=== PATIENT | female | born 1970 | race Caucasian/White ===

== ENCOUNTER 2018-11-03 11:42 | Emergency (ER) | payer OTHER ==
[~2018-11-03] VITALS: Ht 165.1 cm; Wt 60.8 kg
--- NOTE | 2018-11-03 11:42 | NUR ---
PT BIBSELF FROM HOME, C/O N/V/FAINTNESS SINCE THIS AM, PT AAOX4, RESPIRATIONS EVEN AND UNLABORED, NO SOB, DENIES AND PAIN/DISCOMFORT, PT ON MONITOR, PENDING ER PROVIDER RHYS
[2018-11-03] MEDS ORDERED: ONDANSETRON HCL/PF 4 MG/2 ML VIAL ONE (12:13)
--- NOTE | 2018-11-03 12:15 | NUR ---
BLOOD COLLECTED FROM PIV, HANDED OVER TO HAM BONER, NO URINE ORDER AT THIS TIME
[2018-11-03 12:25] LABS: BASOPHILS % (AUTO) 0.2 % (0.0-2.0); EOSINOPHILS % (AUTO) 2.8 % (0.0-6.0); HEMATOCRIT 43 % (33-45); HEMOGLOBIN 14.7 g/dL (11.5-14.8); LYMPHOCYTES # (AUTO) 1.4 /CMM (0.8-4.8); LYMPHOCYTES % (AUTO) 18.4 % (20.0-44.0); MEAN CORPUSCULAR HGB CONC 34 g/dl (31.0-36.0); MEAN CORPUSCULAR VOLUME 93 fL (82-100); MONOCYTES # (AUTO) 0.4 /CMM (0.1-1.30); NEUTROPHILS # (AUTO) 5.5 /CMM (1.8-8.9); NEUTROPHILS % (AUTO) 73.6 % (43.0-81.0); PLATELET COUNT (AUTO) 222 /CMM (150-450); RED BLOOD CELL COUNT(AUTO) 4.68 MIL/uL (4.0-5.2); WHITE BLOOD COUNT (AUTO) 7.5 K/uL (4.3-11.0)
[2018-11-03] MEDS ORDERED: IV NS 0.9% 1,000 ML BAG IV ONE (12:30)
[2018-11-03] MEDS ORDERED: ONDANSETRON HCL/PF 4 MG/2 ML VIAL IVP ONE (12:30)
[2018-11-03 12:41] LABS: CALCIUM, SERUM 8.6 mg/dL (8.5-10.1); CARBON DIOXIDE 27 mmol/L (21-32); CHLORIDE 102 mmol/L (98-107); CREATININE 0.8 mg/dL (0.6-1.3); GLUCOSE 78 mg/dL (74-106); SODIUM SERUM 135 mmol/L (136-145); UREA NITROGEN, BLOOD 18 mg/dL (7-18)
[2018-11-03 12:50] LABS: ALANINE AMINOTRANSFERASE 17 U/L (12-78); ALBUMIN 3.7 g/dL (3.4-5.0); ALKALINE PHOSPHATASE 49 U/L (46-116); ASPARTATE AMINOTRANSFERASE 16 U/L (15-37); BILIRUBIN,DIRECT 0.1 mg/dL (0.0-0.2); BILIRUBIN,TOTAL 0.7 mg/dL (0.2-1.0); TOTAL PROTEIN, SERUM 7.5 g/dL (6.4-8.2)
[2018-11-03 13:51] VITALS: BP 90/60
--- NOTE | 2018-11-03 14:24 | NUR ---
Patient discharged to home in stable condition. Written and verbal after care instructions given. Patient verbalizes understanding of instruction. IV removed. Catheter intact and site benign. Pressure and 4x4 applied to site. No bleeding noted.
== END 2018-11-03 14:27 | disposition home or self-care (01) ==
LOC: ER 11:46
DX: E86.0 Dehydration (principal); E03.9 Hypothyroidism, unspecified; F41.9 Anxiety disorder, unspecified
CPT/HCPCS: 36415; 70450; 71045; 80048; 80076; 84443; 84484; 85025; 85730; 93005; 96361; 96374; 99284; A4606; J2405; J7030 ×2; Z7610

== ENCOUNTER 2019-01-27 20:13 | Inpatient (IN) | payer OTHER ==
[~2019-01-27] VITALS: Ht 170.2 cm; Wt 59.0 kg
--- NOTE | 2019-01-27 20:50 | NUR ---
PT BBRELATIVE FROM HOME C/C N/V/D X4 DAYS, UNABLE TO KEEP FLUIDS DOWN. AFEBRILE. PT C/O OF DIZZINESS, WEAKNESS WHEN STANDING OR SITTING. DENIES CARDIAC HX. PT ON MONITOR IN BED 9 WITH FAMILY AT BEDSIDE. WILL CONTINUE TO MONITOR.
--- NOTE | 2019-01-27 21:10 | NUR ---
IV PLACED AND BLOOD DRAWN AND GIVEN TO LAB
[2019-01-27] MEDS ORDERED: DEXAMETHASONE SOD PHOSPHATE 10 MG/ML VIAL ONE (21:16)
[2019-01-27] MEDS ORDERED: ONDANSETRON HCL/PF 4 MG/2 ML VIAL ONE (21:16)
[2019-01-27] MEDS ORDERED: ONDANSETRON HCL/PF 4 MG/2 ML VIAL IVP ONE (21:30)
[2019-01-27] MEDS ORDERED: IV NS 0.9% 1,000 ML BAG IV ONE ×3 (21:30→22:30)
[2019-01-27] MEDS ORDERED: DEXAMETHASONE SOD PHOSPHATE 10 MG/ML VIAL IV ONE (21:30)
--- NOTE | 2019-01-27 21:31 | NUR ---
RADIOLOGY AT [facility] FOR XRAY
[2019-01-27 21:37] LABS: BASOPHILS % (AUTO) 0.1 % (0.0-2.0); EOSINOPHILS % (AUTO) 2.2 % (0.0-6.0); HEMATOCRIT 51 % (33-45); HEMOGLOBIN 16.7 g/dL (11.5-14.8); LYMPHOCYTES # (AUTO) 1.6 /CMM (0.8-4.8); LYMPHOCYTES % (AUTO) 17.5 % (20.0-44.0); MEAN CORPUSCULAR HGB CONC 33 g/dl (31.0-36.0); MEAN CORPUSCULAR VOLUME 95 fL (82-100); MONOCYTES # (AUTO) 0.7 /CMM (0.1-1.30); MONOCYTES % (AUTO) 7.5 % (2.0-12.0); NEUTROPHILS # (AUTO) 6.7 /CMM (1.8-8.9); NEUTROPHILS % (AUTO) 72.7 % (43.0-81.0); PLATELET COUNT (AUTO) 282 /CMM (150-450); RED BLOOD CELL COUNT(AUTO) 5.39 MIL/uL (4.0-5.2); WHITE BLOOD COUNT (AUTO) 9.2 K/uL (4.3-11.0)
[2019-01-27 21:51] LABS: CALCIUM, SERUM 9.4 mg/dL (8.5-10.1); CREATININE 0.5 mg/dL (0.6-1.3)
[2019-01-27 21:57] LABS: ALBUMIN 3.3 g/dL (3.4-5.0); BILIRUBIN,DIRECT 0.1 mg/dL (0.0-0.2); BILIRUBIN,TOTAL 0.8 mg/dL (0.2-1.0); TOTAL PROTEIN, SERUM 7.8 g/dL (6.4-8.2)
[2019-01-27 22:06] LABS: T4 (THYROXINE) 12.1 ug/dL (4.7-13.3); THYROID STIMULATING HORMONE 1.841 uIU/mL (0.358-3.74)
[2019-01-27] MEDS ORDERED: PIPERACILLIN /TAZOBACTAM 3.375 G in IV D5W 50 ML IV ONE (22:30)
[2019-01-27] MEDS ORDERED: PIPERACILLIN /TAZOBACTAM 3.375 G VIAL IV ONE (22:39)
[2019-01-27] MEDS ORDERED: POTASSIUM CL. PREMIX PERIPHER. 50 ML ONE (23:27)
--- NOTE | 2019-01-27 23:27 | NUR ---
BED 115-1
[2019-01-27] MEDS: POTASSIUM CL. PREMIX PERIPHER. 50 ML IV SCH (23:35)
--- NOTE | 2019-01-28 00:21 | NUR ---
URINE COLLECTED AND SENT TO LAB
[2019-01-28 00:27] LABS: APPEARANCE,URINE Clear (CLEAR); BILIRUBIN,URINE MODERATE (NEGATIVE); BLOOD, URINE Trace-intact Ery/uL (NEGATIVE); COLOR,URINE Yellow (YELLOW); KETONES,URINE >=160 (NEGATIVE); LEUKOCYTE ESTERASE ,URINE Negative (NEGATIVE); NITRITE, URINE Negative (NEGATIVE); PH,URINE 5.5 (5.0-8.0); PROTEIN,URINE 100 mg/dl (NEGATIVE); UGLUCOSE Negative (NEGATIVE); UROBILINOGEN,URINE 0.2 EU/dL (0.2)
--- NOTE | 2019-01-28 00:30 | NUR ---
REPORT GIVEN TO PRECIOUS JACQUES FOR CARLA
[2019-01-28 00:55] VITALS: BP 107/66
--- NOTE | 2019-01-28 00:55 | NUR ---
RN NOTES RECEIVED PT. FROM ER WITH DX. OF DIFFUSE COLITIS, ST ON TELE MONITOR HR-125, A/OX4, AMBULATORY, DENIES PAIN, NO N/V, ADMISSION INSTRUCTION WAS GIVEN, CALL LIGHT WITHIN REACH, [id number], CONTINUE TO MONITOR
[2019-01-28] MEDS: POTASSIUM CL. PREMIX PERIPHER. 50 ML IV SCH ×3 (01:17→03:38)
[2019-01-28] MEDS ORDERED: ACETAMINOPHEN 325 MG TABLET PO PRN (01:30)
[2019-01-28] MEDS ORDERED: MORPHINE SULFATE INJ 2 MG/ML DISP.SYRIN IV PRN (01:30)
[2019-01-28] MEDS ORDERED: Potassium Chloride 20 MEQ in IV NS 0.9% 1,000 ML IV PRN (01:30)
[2019-01-28] MEDS ORDERED: ONDANSETRON HCL/PF 4 MG/2 ML VIAL IVP PRN (01:30)
[2019-01-28] MEDS ORDERED: IV PREMIX NS +20MEQ KCL 1 L IV ONE (02:31)
[2019-01-28] MEDS ORDERED: POTASSIUM CL. PREMIX PERIPHER. 50 ML ONE (03:37)
[2019-01-28] MEDS ORDERED: PIPERACILLIN /TAZOBACTAM 3.375 G VIAL IV ONE (03:40)
[2019-01-28 04:00] VITALS: BP 119/71
[2019-01-28] MEDS ORDERED: PIPERACILLIN /TAZOBACTAM 3.375 G in IV D5W 50 ML IV SCH (05:00)
--- NOTE | 2019-01-28 07:15 | NUR ---
RN OPENING NOTE RECEIVED PATIENT IN BED AWAKE AND ALERT. AMBULATED TO GO TO THE BATHROOM. CAME IN LAST NIGHT DUE TO DIFFUSE COLITIS. PATIENT ON TELE MONITOR, SINUS TACHY 114. NOC SHIFT RN SAID MD IS AWARE. PATIENT ON CLEAR LIQUID DIET. HAS LEFT AC #20 WITH NS + 20 MEQ OF KCL RUNNING AT 100ML/HR. SKIN IS INTACT. BED ON LOWEST POSITION. CALL LIGHT WITHIN REACH. WILL CONTINUE TO MONITOR THROUGHOUT THE SHIFT
[2019-01-28 07:24] LABS: BASOPHILS % (AUTO) 0.1 % (0.0-2.0); HEMATOCRIT 45 % (33-45); HEMOGLOBIN 14.7 g/dL (11.5-14.8); LYMPHOCYTES # (AUTO) 0.3 /CMM (0.8-4.8); LYMPHOCYTES % (AUTO) 6.4 % (20.0-44.0); MEAN CORPUSCULAR HGB CONC 33 g/dl (31.0-36.0); MEAN CORPUSCULAR VOLUME 94 fL (82-100); MONOCYTES # (AUTO) 0.1 /CMM (0.1-1.30); NEUTROPHILS # (AUTO) 4.8 /CMM (1.8-8.9); NEUTROPHILS % (AUTO) 92.5 % (43.0-81.0); PLATELET COUNT (AUTO) 177 /CMM (150-450); RED BLOOD CELL COUNT(AUTO) 4.76 MIL/uL (4.0-5.2); WHITE BLOOD COUNT (AUTO) 5.2 K/uL (4.3-11.0)
[2019-01-28 07:53] LABS: ALBUMIN 3.3 g/dL (3.4-5.0); BILIRUBIN,TOTAL 0.5 mg/dL (0.2-1.0); CALCIUM, SERUM 8.4 mg/dL (8.5-10.1); CREATININE 1.1 mg/dL (0.6-1.3); MAGNESIUM 1.5 mg/dL (1.8-2.4); PHOSPHORUS 2.8 mg/dL (2.5-4.9); TOTAL PROTEIN, SERUM 7.4 g/dL (6.4-8.2)
[2019-01-28 08:00] VITALS: BP 107/62
[2019-01-28] MEDS: PANTOPRAZOLE 40 MG TABLET.DR PO SCH (08:01)
[2019-01-28 08:13] LABS: POTASSIUM 6.3 mmol/L (3.5-5.1)
[2019-01-28] MEDS ORDERED: LEVO125T8 PO (08:39)
[2019-01-28 09:11] LABS: BACTERIA,URINE Few /HPF (None Seen); SQUAMOUS EPITHELIAL CELL,UR Few /HPF (None Seen); WBC,URINE NONE SEEN /HPF (0-3)
[2019-01-28 09:12] LABS: FINE GRANULAR CASTS,URINE Few /LPF (None Seen)
[2019-01-28] MEDS: PIPERACILLIN /TAZOBACTAM 3.375 G in IV D5W 100 ML IV SCH ×2 (10:54→18:59)
[2019-01-28 12:00] VITALS: BP 102/64
[2019-01-28] MEDS: Magnesium 1GM/D5W 100ML PREMIX 100 ML IV SCH ×2 (12:02→16:46)
[2019-01-28] MEDS ORDERED: IV NS 0.9% 1,000 ML BAG IV PRN (12:30)
[2019-01-28] MEDS ORDERED: IV NS 0.9% 1,000 ML IV PRN (12:30)
[2019-01-28 13:37] LABS: ALBUMIN 3.2 g/dL (3.4-5.0); BILIRUBIN,TOTAL 0.6 mg/dL (0.2-1.0); CALCIUM, SERUM 8.3 mg/dL (8.5-10.1); CREATININE 1.1 mg/dL (0.6-1.3); POTASSIUM 5.3 mmol/L (3.5-5.1); TOTAL PROTEIN, SERUM 7.2 g/dL (6.4-8.2)
[2019-01-28 16:00] VITALS: BP 106/66
--- NOTE | 2019-01-28 18:33 | NUR ---
RN NOTE PATIENT REPORTED THAT SHE HAD A LARGE BM, DIARRHEA. GREEN/GOLD COLOR, NO BLOOD WAS NOTED. Addendum: 01/28/19 at 1835 by GRAHAM PARR RN TOTAL BM TODAY WAS 4. ALL DIARRHEA, DR JONES AWARE
--- NOTE | 2019-01-28 18:50 | NUR ---
RN CLOSING NOTE PATIENT AWAKE AND ALERT. NO COMPLAINS OF ANY PAIN OR ANY DISTRESS DURING THE DAY SHIFT. HAD 4X DIARRHEA TODAY. AWARE. REPLACED MAGNESIUM AND CHANGED IVF TO NS AT 100 ML/HR DUE TO HYPERKALEMIA. ALL MEDS ARE GIVEN, ALL NEEDS MET. BED ON LOWEST POSITION. CALL LIGHT WITHIN REACH. WILL CONT TO MONITOR CLOSELY. Addendum: 01/28/19 at 1852 by GRAHAM PARR RN WILL ENDORSE TO NOC ALEXANDR RN
--- NOTE | 2019-01-28 19:20 | NUR ---
TOWER ERECTOR HELPER NOTE RECEIVED PT IN STABLE CONDITION, A&O X4, ABLE TO MAKE NEEDS KNOWN. CURRENTLY WATCHING TV WITH GUEST. TELE MONITOR READING ST 115. IV IN L AC PATENT AND INTACT WITH IVF INFUSING. NO SIGNS OF SOB OR DISTRESS, NO C/O PAIN. ALL CURRENT NEEDS ATTENDED TO. SAFETY PRECAUTIONS IN PLACE: BED LOW, LOCKED, UPPER RAILS UP, AND CALL LIGHT WITHIN RANGE. WILL CONT. TO MONITOR.
[2019-01-28 20:00] VITALS: BP 108/65
[2019-01-29] VITALS (7 sets, daily range): BP systolic 97–126; BP diastolic 56–68
[2019-01-29] MEDS: PIPERACILLIN /TAZOBACTAM 3.375 G in IV D5W 100 ML IV SCH ×3 (02:00→19:42)
--- NOTE | 2019-01-29 06:17 | NUR ---
PAINT BRUSH MAKER NOTE PT IN STABLE CONDITION, A&O X4, ABLE TO MAKE NEEDS KNOWN. TELE MONITOR READING SR 90. IV IN L AC PATENT AND INTACT WITH IVF INFUSING. NO SIGNS OF SOB OR DISTRESS, NO C/O PAIN. ALL CURRENT NEEDS ATTENDED TO. SAFETY PRECAUTIONS IN PLACE: BED LOW, LOCKED, UPPER RAILS UP, AND CALL LIGHT WITHIN RANGE. WILL CONT. TO MONITOR AND ENDORSE TO NEXT SHIFT FOR CARLA.
[2019-01-29 07:16] LABS: CALCIUM, SERUM 8.5 mg/dL (8.5-10.1); CREATININE 0.8 mg/dL (0.6-1.3); MAGNESIUM 1.8 mg/dL (1.8-2.4); POTASSIUM 4.7 mmol/L (3.5-5.1)
--- NOTE | 2019-01-29 07:20 | NUR ---
RN OPENING NOTES RECEIVED REPORT FROM POND WORKER RN. PT IS ON TELE MONITOR READING SR 90'S. PT IS A&OX 4. PT IS ABLE TO MAKE NEEDS KNOWN. PT DENIES ANY PAIN AT PRESENT MOMENT AND SOB. CALL LIGHT IS WITHIN REACH AND BED IS IN LOWEST AND LOCKED POSITION PT ENCOURAGED TO CALL STAFF IF SHE WISHES TO AMBULATE. WILL CONTINUE TO MONITOR.
[2019-01-29] MEDS: PANTOPRAZOLE 40 MG TABLET.DR PO SCH (07:52)
[2019-01-29 08:13] LABS: T3 TOTAL 88 ng/dL (71-180)
[2019-01-29] MEDS: METRONIDAZOLE 500MG/ NS 100ML 500 MG in PREMIX 1 EA IV SCH ×2 (18:00→21:00)
[2019-01-29] MEDS: Potassium Chloride 10 MEQ in IV D5/0.45 NACL 1,000 ML IV PRN (18:01)
--- NOTE | 2019-01-29 19:44 | NUR ---
RN INITIAL NOTES RECEIVED REPORT FROM AM SHIFT RN. PT IS ON TELE MONITOR READING SR 80'S. PT IS A&OX 4. PT IS ABLE TO MAKE NEEDS KNOWN. PT DENIES ANY PAIN AT PRESENT MOMENT AND SOB. CALL LIGHT IS WITHIN REACH AND BED IS IN LOWEST AND LOCKED POSITION PT ENCOURAGED TO CALL STAFF IF SHE WISHES TO AMBULATE. WILL CONTINUE TO MONITOR.
--- NOTE | 2019-01-29 19:56 | NUR ---
RN CLOSING NOTES GAVE REPORT TO ENGINEERING PATTERNMAKER RN. PT IS ON TELE MONITOR READING SR 80'S. PT IS A&OX 4. PT IS ABLE TO MAKE NEEDS KNOWN. PT DENIES ANY PAIN AT PRESENT MOMENT AND SOB. CALL LIGHT IS WITHIN REACH AND BED IS IN LOWEST AND LOCKED POSITION PT ENCOURAGED TO CALL STAFF IF SHE WISHES TO AMBULATE. WILL ENDORSE CONTINUITY OF CARE TO ENGINEERING PATTERNMAKER RN.
[2019-01-30] VITALS (7 sets, daily range): BP systolic 98–110; BP diastolic 55–65
[2019-01-30] MEDS: PIPERACILLIN /TAZOBACTAM 3.375 G in IV D5W 100 ML IV SCH ×3 (03:17→18:28)
[2019-01-30] MEDS: METRONIDAZOLE 500MG/ NS 100ML 500 MG in PREMIX 1 EA IV SCH ×3 (05:17→20:20)
--- NOTE | 2019-01-30 05:59 | NUR ---
RN CLOSING NOTES PT AOX4 CONT' ON TELE MONITOR READING SR 80'S. PT IS A&OX 4. PT IS ABLE TO MAKE NEEDS KNOWN. PT DENIES ANY PAIN AT PRESENT MOMENT AND SOB, DIET ADVANCED TO FULL LIQ', REINIER' WELL. CALL LIGHT IS WITHIN REACH AND BED IS IN LOWEST AND LOCKED POSITION PT ENCOURAGED TO CALL STAFF IF SHE WISHES TO AMBULATE. WILL ENDORSE CONTINUITY OF CARE TO CLEAT THROWER RN.
[2019-01-30 06:36] LABS: BASOPHILS % (AUTO) 0.1 % (0.0-2.0); EOSINOPHILS % (AUTO) 0.3 % (0.0-6.0); HEMATOCRIT 31 % (33-45); HEMOGLOBIN 10.6 g/dL (11.5-14.8); LYMPHOCYTES % (AUTO) 22.3 % (20.0-44.0); MEAN CORPUSCULAR HGB CONC 35 g/dl (31.0-36.0); MEAN CORPUSCULAR VOLUME 90 fL (82-100); MONOCYTES # (AUTO) 0.4 /CMM (0.1-1.30); MONOCYTES % (AUTO) 8.2 % (2.0-12.0); NEUTROPHILS % (AUTO) 69.1 % (43.0-81.0); PLATELET COUNT (AUTO) 120 /CMM (150-450); WHITE BLOOD COUNT (AUTO) 4.3 K/uL (4.3-11.0)
[2019-01-30 06:52] LABS: CREATININE 0.7 mg/dL (0.6-1.3); MAGNESIUM 1.6 mg/dL (1.8-2.4); PHOSPHORUS 1.5 mg/dL (2.5-4.9); POTASSIUM 3.4 mmol/L (3.5-5.1)
--- NOTE | 2019-01-30 07:10 | NUR ---
MERCHANT PATROLLER OPENING NOTES RECEIVED REPORT FROM PM SHIFT RN. PT IS ON TELE MONITOR READING SR 80'S. PT IS A&OX 4. ABLE TO MAKE NEEDS KNOWN. PT DENIES ANY PAIN AT THIS TIME.ON RA,NO SOB NO DISTRESS NOTED AT THIS TIME.CALL LIGHT IS WITHIN REACH AND BED IS IN LOW AND LOCKED POSITION .PT ENCOURAGED TO CALL FOR HELP. SRX2.WILL CONTINUE TO MONITOR.
[2019-01-30] MEDS: PANTOPRAZOLE 40 MG TABLET.DR PO SCH (07:45)
[2019-01-30] MEDS ORDERED: K PHOS NEUTRAL 250 MG TABLET PO ONE (10:00)
[2019-01-30] MEDS ORDERED: POTASSIUM CHLORIDE 20 MEQ TAB.PRT.SR PO SCH (10:00)
[2019-01-30] MEDS: Magnesium 1GM/D5W 100ML PREMIX 100 ML IV SCH ×2 (10:05→11:18)
[2019-01-30] MEDS: Potassium Chloride 10 MEQ in IV D5/0.45 NACL 1,000 ML IV PRN (13:04)
--- NOTE | 2019-01-30 13:30 | NUR ---
MS RN NOTE SEEN BY .UNDATED ABOUT PATIENT CONDITION WITH LABS.MADE AWARE THAT PLATELET COUNT TRENDING DOWN IS ON ZOSYN.GOT NEW ORDER FOR F/U LABS FOR TOMORROW.SPOKE TO PATIENT BY DOCTOR AND ANSWERED ALL THE QUESTIONS.WILL CONTINUE TO MONITOR.
[2019-01-30 14:12] LABS: *HSV 2 DNA PCR Negative (Negative)
--- NOTE | 2019-01-30 18:52 | NUR ---
MS RN CLOSING NOTES PT IS A&OX 4. ABLE TO MAKE NEEDS KNOWN. PT DENIES ANY PAIN AT THIS TIME.ON RA,NO SOB NO DISTRESS NOTED AT THIS TIME.CALL LIGHT IS WITHIN REACH AND BED IS IN LOW AND LOCKED POSITION .PT ENCOURAGED TO CALL FOR HELP. SRX2.WILL ENDORSE TO PM NURSE FOR CARLA.
--- NOTE | 2019-01-30 19:58 | NUR ---
MS RN NOTE: RECEIVED PT ON BED ALERT AND ORIENTED X4. ABLE TO MAKE NEEDS KNOWN. NO APPARENT DISTRESS NOTED. NO COMPLAINTS OF PAIN OR DISCOMFORT AT THIS TIME. ON ROOM AIR, BREATHING EVEN AND UNLABORED WITH NORMAL RESPIRATIONS. IV ON LEFT ANTECUBITAL #20 INTACT AND PATENT, IVF INFUSING WELL. KEPT CLEAN, DRY AND COMFORTABLE. SAFETY AND FALL PRECAUTIONS OBSERVED AND MAINTAINED. CALL LIGHT PLACED WITHIN REACH. WILL CONTINUE TO MONITOR PT.
[2019-01-31] MEDS: PIPERACILLIN /TAZOBACTAM 3.375 G in IV D5W 100 ML IV SCH ×2 (02:22→11:07)
[2019-01-31 04:00] VITALS: BP 97/57
[2019-01-31] MEDS: METRONIDAZOLE 500MG/ NS 100ML 500 MG in PREMIX 1 EA IV SCH (05:04)
[2019-01-31] MEDS: Potassium Chloride 10 MEQ in IV D5/0.45 NACL 1,000 ML IV PRN (05:05)
[2019-01-31 06:11] LABS: BASOPHILS % (AUTO) 0.2 % (0.0-2.0); HEMATOCRIT 30 % (33-45); HEMOGLOBIN 10.3 g/dL (11.5-14.8); LYMPHOCYTES % (AUTO) 20.5 % (20.0-44.0); MEAN CORPUSCULAR HGB CONC 35 g/dl (31.0-36.0); MEAN CORPUSCULAR VOLUME 90 fL (82-100); MONOCYTES # (AUTO) 0.4 /CMM (0.1-1.30); MONOCYTES % (AUTO) 7.6 % (2.0-12.0); NEUTROPHILS # (AUTO) 3.3 /CMM (1.8-8.9); NEUTROPHILS % (AUTO) 68.7 % (43.0-81.0); PLATELET COUNT (AUTO) 116 /CMM (150-450); RED BLOOD CELL COUNT(AUTO) 3.28 MIL/uL (4.0-5.2); WHITE BLOOD COUNT (AUTO) 4.8 K/uL (4.3-11.0)
[2019-01-31 06:16] LABS: CALCIUM, SERUM 7.4 mg/dL (8.5-10.1); CREATININE 0.7 mg/dL (0.6-1.3); MAGNESIUM 1.8 mg/dL (1.8-2.4); PHOSPHORUS 2.5 mg/dL (2.5-4.9); POTASSIUM 3.5 mmol/L (3.5-5.1)
[2019-01-31 06:28] LABS: THYROID STIMULATING HORMONE 8.178 uIU/mL (0.358-3.74)
--- NOTE | 2019-01-31 06:42 | NUR ---
MS RN NOTE: NO CHANGES NOTED THROUGHOUT THE SHIFT. NO APPARENT DISTRESS NOTED. DENIES PAIN AND DISCOMFORT AT THIS TIME. NO SOB NOTED. IV ON LEFT ANTECUBITAL #20 INTACT AND PATENT, IVF INFUSING WELL. NO SIGNS/SYMPTOMS OF INFILTRATION NOTED. KEPT CLEAN, DRY AND COMFORTABLE. SAFETY AND FALL PRECAUTIONS OBSERVED AND MAINTAINED. WILL ENDORSE TO DAY SHIFT RN FOR CONTINUITY OF CARE.
--- NOTE | 2019-01-31 07:30 | NUR ---
RN NOTEs RECEIVED PATIENT IN BED, ON SITTING POSITION, AWAKE, A&O X4, ABLE TO MAKE NEEDS KNOWN. NOT ON ANY FORM OF DISTRESS, NO SOB, ON ROOM AIR. NO COMPLAINTS OF PAIN OF ANY KIND. IV ACCESS NOTED ON THE L AC: IN PLACE AND INTACT, PATENT ON FLUSHING, DRESSING CDI, NO S/S OF INFILTRATION OR INFECTION. WITH INFUSING D51/2 NS +10 MEQS OF POTASSIUM CHLORIDE AT 75CC/HR. SAFETY PRECAUTIONS OBSERVED AND MAINTAINED IN PLACE: BED LOW, LOCKED, UPPER RAILS UP, ENCOURAGE TO USE CALL LIGHT FOR HELP OR ASSISTANCE. CALL LIGHT WITHIN RANGE. QUESTIONS AND CONCERNS ADDRESSED APPROPRIATELY. WILL CONTINUE TO MONITOR
[2019-01-31 08:00] VITALS: BP_SYST 107; BP_SYST 90; BP_DIAS 61; BP_DIAS 63
[2019-01-31] MEDS: PANTOPRAZOLE 40 MG TABLET.DR PO SCH (08:29)
[2019-01-31] MEDS ORDERED: Magnesium 1GM/D5W 100ML PREMIX 100 ML IV SCH (09:00)
[2019-01-31] MEDS ORDERED: POTASSIUM CHLORIDE 20 MEQ TAB.PRT.SR PO ONE (09:00)
--- NOTE | 2019-01-31 11:15 | NUR ---
RN NOTES PATIENT COMPLAINED OF PAIN ON THE IV SITE AT THIS TIME, REDNESS ON THE SURROUNDING AREA NOTED. IV INFUSION STOP AND IV CATH REMOVED. PATIENT REFUSED TO HAVE IV INSERTED AT THIS TIME. HAVE ASKED FOR SOMETIME TO THINK ABOUT IT, PATIENT WOULDN'T WANT TO GET POKE AT THIS IN HOPE OF GETTING DISCHARGE TODAY. DR LU AT THE UNIT AND INFORMED, PER LATER, PATIENT IS OK TO GO BUT WOULD WANT TO KNOW THE CORTISOL AM RESULT PRIOR TO DISCHARGE
[2019-01-31 12:00] VITALS: BP 107/61
--- NOTE | 2019-01-31 12:00 | NUR ---
RN NOTES SEEN AND EXAMINED BY DR. LU. WITH ORDERS FOR DISCHARGE. ORDER NOTED AND CARRIED OUT
[2019-01-31] MEDS ORDERED: METRONIDAZOLE 500 MG TABLET PO SCH (13:00)
--- NOTE | 2019-01-31 13:45 | NUR ---
RN NOTES PATIENT DISCHARGE. ALL QUESTIONS AND CONCERNS ADDRESSED APPROPRIATELY. DISCHARGE AND MEDICATION INSTRUCTIONS GIVEN TO THE PATIENT. PATIENT NOT A CANDIDATE FOR PNEUMONIA VACCINE. MEDICATION RETURNED TO THE PATIENT. ALL BELONGINGS ACCOUNTED AND RETURNED TO THE PATENT. ID BAND REMOVED. PATIENT WENT OUT OF THE UNIT AMBULATORY ACCOMPANIED BY THE SIGNIFICANT OTHER.
[2019-02-02 13:08] LABS: ACTH, PLASMA 411.2 pg/mL (7.2-63.3)
== END 2019-01-31 13:45 | disposition home or self-care (01) | DRG 248 ==
LOC: ER 20:19 → TELE1 01-28 00:06 → MEDSG1 01-30 08:30
PROVIDERS: ADMIT Student in an Organized Health Care Education/Training Program; ATTEND Internal Medicine
DX: A04.9 Bacterial intestinal infection, unspecified (principal); I95.9 Hypotension, unspecified; E44.1 Mild protein-calorie malnutrition; E87.2 Acidosis; E87.1 Hypo-osmolality and hyponatremia; E83.42 Hypomagnesemia; E87.5 Hyperkalemia; E86.0 Dehydration; E03.9 Hypothyroidism, unspecified; G47.00 Insomnia, unspecified; E88.09 Other disorders of plasma-protein metabolism, not elsewhere classified; E87.6 Hypokalemia; R74.8 Abnormal levels of other serum enzymes; B00.1 Herpesviral vesicular dermatitis
CPT/HCPCS: 36415; 71045-TC; 80048-TC; 80053-TC; 80076-TC; 81000-TC; 82024; 82533; 82962-TC; 83540-TC; 83605-TC; 83690-TC; 83735-TC; 84100-TC; 84436-TC; 84439-TC; 84443-TC; 84480; 84481; 84702-TC; 84703-TC; 85025-TC; 86694; 86695; 86696; 87040-TC; 87045-TC; 87081-TC; 87086-TC; 89055; A4216; G0378; J1100; J2405; J2543; J3475; J3480; J3490; J7030; J7040; J7050; J7060